=== PATIENT | female | born 1930 | race Caucasian/White ===

== ENCOUNTER → 2017-11-07 | Outpatient (CLI) | payer MEDICARE ==
[~2017-11-07] VITALS: Ht 147.3 cm; Wt 41.7 kg
[~2017-11-07] MED LIST: ATEN50TA PO; CHLORHEXIDINE GLUCONATE 2 % 1 PACK (2 CLOTHS) TOPICAL PRN; DEPA250T2 PO; LACTATED RINGER'S 1000 ML IV PRN; LIDOCAINE HCL 1% PF 5 ML SYRINGE OTHER ONE; METOPROLOL TARTRATE 25 MG TAB PO PRN; POVIDONE IODINE 5% (ANTISEPSIS KIT) 4 APPLICATIONS EACH NARE PRN; PROPOFOL 200 MG/20 ML AMP IV ONE; SODIUM CHLORID 0.9% 500 ML IV PRN; cefTRIAXone INJ 1,000 MG in SODIUM CHLORIDE 0.9% INJ 100 ML IV ONE
[2017-11-07 16:28] VITALS: BP 118/72; PULSE 65; RESP 18; TEMP 97.8; O2SAT 98
--- NOTE | 2017-11-07 17:41 | PD.PROCEDR ---
GI Procedure PROCEDURE PERFORMED Endoscopic ultrasound with FNA INDICATION FOR PROCEDURE Abdominal pain, weight loss, suspicion for pancreatic malignancy, recent pancreatic cyst drainage at the [facility] PROCEDURE: The procedure, risks and benefits were discussed with Patient/POA and informed consent was obtained. Anesthesia sedated Patient with Diprivan. Patient was placed in the left lateral decubitus position. Endoscopic ultrasound: The Pentax videoscope was introduced through the oropharynx and advanced to the second portion of the duodenum. FINDINGS: The endosonographic view of the pancreas was basically that of a normal pancreas from head to tail with a normal pancreatic duct with no lumps or bumps and no cysts noted There was a fairly large 4 x 4 centimeter cyst towards the tail end of the pancreas but probably from the kidney and FNA was performed and the fluid was clear and it was sent to be analyzed the patient was given 1 g of Rocephin IV There was no lymphadenopathy The common bile duct appeared to be unremarkable and within normal limits ESTIMATED BLOOD LOSS: None SPECIMENS REMOVED: Fine-needle aspiration of the cyst COMPLICATIONS: None IMPRESSION: Unremarkable pancreas on endoscopic ultrasound Abdominal cyst probably renal in origin PLAN: Await biopsy results We will order a CT of the abdomen and pelvis with pancreatic protocol with IV and p.o. contrast We will order a CEA and a CA 199 Patient follow-up in clinic in 2-3 weeks with Crispin Martinez MD Nov 07, 2017 17:41
--- NOTE | 2017-11-08 13:16 | EKG ---
Date Performed: 11/07/2017 Time Performed: 13:43:11 PTAGE: 86 years EKG: Sinus rhythm MARKED LEFT AXIS DEVIATION LEFT BUNDLE BRANCH BLOCK Compared to previous tracing sinus rhythm with L eft bundle branch block has replaced AV pacing ABNORMAL ECG PREVIOUS TRACING : 05/25/2010 18.05 DOCTOR: Abelardo Andres Interpretating Date/Time 11/08/2017 13:14:55
[2017-11-10 03:13] LABS: LIPASE BODY FLUID 0 U/L
== END ==
LOC: HSDC 12:52
PROVIDERS: ATTEND Internal Medicine Gastroenterology
DX: R19.09 Other intra-abdominal and pelvic swelling, mass and lump (principal); K86.2 Cyst of pancreas; R63.4 Abnormal weight loss; R10.9 Unspecified abdominal pain; I44.7 Left bundle-branch block, unspecified
CPT/HCPCS: 43242; 82150; 83690; 86403; 87015; 87070; 87102; 87116; 87205; 87206; 88173; 93005; J0696; J7120